=== PATIENT | female | born 1970 | race Caucasian/White ===

== ENCOUNTER 2021-12-12 06:49 | Day surgery (SDC) | payer OTHER ==
[~2021-12-12] VITALS: Ht 172.7 cm; Wt 86.2 kg
[2021-12-12] MEDS ORDERED: fentaNYL citrate 0.05 MG/ML VIAL ONE (07:22)
[2021-12-12] MEDS ORDERED: diphenhydrAMINE 50 MG/ML VIAL ONE (07:22)
[2021-12-12] MEDS ORDERED: MIDAZOLAM 5 MG/5 ML VIAL ONE (07:22)
[2021-12-12] MEDS ORDERED: LIDOCAINE 2% 100 MG/5 ML UJET TP ONE (07:23)
[2021-12-12] MEDS ORDERED: fentaNYL citrate 0.05 MG/ML VIAL IVP ONE (11:50)
[2021-12-12] MEDS ORDERED: MIDAZOLAM 2 MG/2 ML VIAL IVP ONE (11:50)
== END 2021-12-12 09:15 | disposition home or self-care (01) ==
LOC: MOR 06:49 → MMU 06:50 → MOR 09:15
PROVIDERS: ATTEND Internal Medicine Gastroenterology
DX: Z12.11 Encounter for screening for malignant neoplasm of colon (principal); D12.0 Benign neoplasm of cecum; G43.909 Migraine, unspecified, not intractable, without status migrainosus; Z80.0 Family history of malignant neoplasm of digestive organs; Z98.82 Breast implant status; Z79.899 Other long term (current) drug therapy; Z20.822 Contact with and (suspected) exposure to COVID-19
CPT/HCPCS: 45385; 81025; 87426; J2250; J3010; 88305; J1200